=== PATIENT | male | born 1970 | race Caucasian/White ===

== ENCOUNTER 2017-01-08 16:17 | Inpatient (IN) ==
--- NOTE | 2017-01-08 16:52 | Emergency Department Note ---
Disposition Clinical Impression: Acute anxiety, Anger reaction Disposition: Admitted As Inpatient Condition: Undetermined Instructions: Anxiety (ED) Reasons to Return/Additional Instructions: 1. Please follow-up with your psychiatrist. 2. Please take your medications as prescribed. Referrals: Unassigned,Provider [Primary Care Provider] - Forms: ED Satisfaction Letter Time of Disposition: 18:28 Psych HPI - General Chief Complaint: ED Psychiatric Symptoms Stated Complaint: HI Time Seen by Provider: 01/08/17 16:37 Source: patient Mode of arrival: ambulatory Limitations: no limitations Nursing Notes Reviewed: Yes Vital Signs Reviewed: Yes - History of Present Illness HPI Narrative: 46-year-old male with history of CAD with 2 stents roughly 2-3 years ago, arrives [facility] emergency department complaining of homicidal ideations and racing thoughts. The patient states that he has been taking his medications as prescribed but over the past 2 weeks he has gotten progressively more anxious. The patient states his main anxiety causes him to become angry and he is almost gotten into numerous fights. The patient states that he is scared if he got into fights he would have a heart attack and . The patient also states that his next appointment is in [address] Sharma in [facility] psychiatric services. The patient states he is unsure if he would make it to that point because he thinks he may be hurting somebody by that point. The patient denies any hallucinations, suicidal ideations. The patient is smiling and laughing and cracking jokes whenever he walks by. The patient has been taking his medications as prescribed. Patient denies any chest pain or difficulty breathing above his baseline at this time. The patient did recently have a cardiac catheter roughly 1 month ago which revealed no acute findings. Patient denies any other complaints. Pt complaint: anxiety If medical clearance, reason: psychiatric condition Onset (ago): unknown Improves with: none Worsens with: none Alleged intoxication: No Associated Psychiatric Symptoms: homicidal ideation, racing thoughts Associated symptoms: Reports: denies other symptoms Traumatic symptoms: denies traumatic injury Self harm or harm to others: admits thoughts of harming others - Related Data Home Medications Medication Instructions Recorded Confirmed Albuterol Sulfate [Proair 90 mcg IH Q4H PRN 10/25/16 01/08/17 Respiclick] Atorvastatin [Lipitor] 40 mg PO HS 10/25/16 01/08/17 Citalopram [CeleXA] 20 mg PO DAILY 10/25/16 01/08/17 Metoprolol XL (24 HR) Succ [Toprol 50 mg PO DAILY 10/25/16 01/08/17 Xl] Previous Rx's Medication Instructions Recorded Aspirin 81 mg PO DAILY #30 tab.chew 07/04/16 Clopidogrel [Plavix] 75 mg PO DAILY #30 tablet 07/04/16 Allergies Allergy/AdvReac Type Severity Reaction Status Date / Time No Known Allergies Allergy Verified 03/16/15 16:41 All systems ED: reviewed and negative except as stated. Constitutional: Denies: fever, chills, weakness, weight change Eyes: Denies: eye pain, eye discharge, vision change ENT ED: Denies: ear pain, throat pain, dental pain, hearing loss, epistaxis, congestion, dysphagia Cardiovascular: Denies: chest pain, palpitations, dyspnea on exertion, edema, syncope Respiratory: Denies: cough, dyspnea, wheezes, hemoptysis, stridor Gastrointestinal: Denies: abdominal pain, nausea, vomiting, diarrhea, constipation, hematemesis, melena, hematochezia Musculoskeletal: Denies: back pain, neck pain, arthralgia, myalgia Neurological: Denies: headache, weakness, numbness, paresthesias, confusion, abnormal gait, vertigo Psychiatric: Reports: anxiety, homicidal thoughts. Denies: depression, suicidal thoughts, auditory hallucinations, visual hallucinations Past Medical History - Past Medical History Attestation: Yes The following information was validated with the patient. Source: patient Medical history: Reports: coronary artery disease, hyperlipidemia, hypertension , myocardial infarction Surgical history: Reports: angioplasty/stent, other Psychiatric history: Reports: anxiety, depression - Social History Smoking Status: Current every day smoker Smokeless Tobacco Status: No Alcohol use: Reports: none Drug use: Reports: marijuana Physical Exam Physical Exam: General: Patient alert, no acute distress, not lethargic HEENT: Head normal inspection, atraumatic, PERRLA, oropharynx grossly intact and normal, trachea midline, no JVD Chest: Nontraumatic, nontender, normal chest rise CV: RRR with no murmurs, rubs, gallops Respiratory: Lungs clear to auscultation bilaterally, no rales, rhonchi, wheezes. Abdomen: Normal inspection, Normal bowel sounds 4 quadrants, nontender to palpation : Patient deferred Extremities: Normal inspection, full range of motion, appropriate pulses, capillary refill under 2 seconds Neurological: Patient alert and oriented 3, cranial nerves II through XII grossly intact, GCS 15 Skin: Warm, intact, no rashes noted - General Limitations: no limitations General appearance: alert Course Vital Signs Temperature 98.4 F 01/08/17 16:22 Pulse Rate 79 01/08/17 16:22 Respiratory Rate 18 01/08/17 16:22 Blood Pressure 131/89 01/08/17 16:22 O2 Sat by Pulse Oximetry 99 01/08/17 16:22 Temperature 98.4 F 01/08/17 16:22 Pulse Rate 79 01/08/17 16:22 Respiratory Rate 18 01/08/17 16:22 Blood Pressure 131/89 01/08/17 16:22 O2 Sat by Pulse Oximetry 99 01/08/17 16:22 Oxygen Delivery Oxygen Delivery Room Air Psych - MDM Narrative Medical decision making narrative: Cleared for 1A eval Patient taken to inpatient psychiatric services at . - Lab Data Result diagrams: 01/08/17 17:14 01/08/17 17:14 Lab Results 01/08/17 01/08/17 01/08/17 Range/Units 12:40 12:40 17:14 WBC 9.1 (4.3-11.1) K/mcL RBC 4.47 (4.19-5.50) M/mcL Hgb 13.4 (12.9-16.9) g/dL Hct 40.5 (37.5-50.1) % MCV 90.6 (83.0-100.0) fL MCH 30.0 (28.0-33.3) pg MCHC 33.1 (31.6-35.5) g/dL RDW 12.4 (11.5-14.5) % Plt Count 249 (140-400) K/mcL MPV 10.8 (9.4-12.4) fL Immature Gran % 0.2 (0-4) % Seg Neutrophils % 67.8 % Lymphocytes % 22.8 % Monocytes % 5.8 % Eosinophils % 2.4 % Basophils % 1.0 % Neutrophils # 6.1 (1.6-8.9) K/mcL Lymphocytes # 2.1 (0.6-4.6) K/mcL Monocytes # 0.5 (0.0-1.3) K/mcL Eosinophils # 0.2 (0.0-0.6) K/mcL Basophils # 0.1 (0.0-0.2) K/mcL Immature Plt Fraction 6.3 H (1.1-6.1) % Sodium (136-145) mEq/L Potassium (3.5-4.5) mEq/L Chloride (98-109) mEq/L Carbon Dioxide (19-29) mEq/L BUN (8-26) mg/dL Creatinine (0.72-1.25) mg/dL Est GFR ( Amer) (> 60) Est GFR (Non-Af Amer) (> 60) BUN/Creatinine Ratio (6-26) Glucose (70-99) mg/dL Calculated Osmolality (280-300) Calcium (8.6-10.8) mg/dL Total Bilirubin (0.2-1.2) mg/dL Direct Bilirubin (0.0-0.5) mg/dL Indirect Bilirubin (0.0-1.2) mg/dL AST (5-34) Units/L ALT (0-55) Units/L Alkaline Phosphatase (38-126) Units/L Serum Total Protein (6.0-8.3) g/dL Albumin (3.5-5.0) g/dL Globulin (2.4-3.5) g/dL Albumin/Globulin Ratio (1.1-2.2) TSH (0.350-4.840) mcIU/mL Urine Color Yellow (Yellow) Urine Clarity Clear (Clear) Urine pH 7.0 (5.0-8.0) pH Units Ur Specific [place] 1.018 (1.010-1.025) Urine Protein Negative (Neg-Trace) mg/dL Urine Glucose (UA) Normal (Normal) mg/dL Urine Ketones Negative (Negative) mg/dL Urine Blood Negative (Negative) Urine Nitrite Negative (Negative) Urine Bilirubin Negative (Negative) Urine Urobilinogen Normal (Normal) mg/dL Ur Leukocyte Esterase Negative (Negative) Salicylates (15-30) mg/dL Urine Opiates Screen Negative (Pvdxwo=549) ng/mL Acetaminophen (10-30) mcg/mL Ur Barbiturates Screen Negative (Dqgyax=372) ng/mL Ur Phencyclidine Scrn Negative (Cutoff=25) ng/mL Ur Amphetamines Screen Negative (Ghdjlp=6664) ng/mL U Benzodiazepines Scrn Negative (Lynsbd=342) ng/mL Urine Cocaine Screen Negative (Cutoff= 300) ng/mL U Marijuana (THC) Screen Positive H (Cutoff = 50) ng/mL Ethyl Alcohol (0-10) mg/dL 01/08/17 Range/Units 17:14 WBC (4.3-11.1) K/mcL RBC (4.19-5.50) M/mcL Hgb (12.9-16.9) g/dL Hct (37.5-50.1) % MCV (83.0-100.0) fL MCH (28.0-33.3) pg MCHC (31.6-35.5) g/dL RDW (11.5-14.5) % Plt Count (140-400) K/mcL MPV (9.4-12.4) fL Immature Gran % (0-4) % Seg Neutrophils % % Lymphocytes % % Monocytes % % Eosinophils % % Basophils % % Neutrophils # (1.6-8.9) K/mcL Lymphocytes # (0.6-4.6) K/mcL Monocytes # (0.0-1.3) K/mcL Eosinophils # (0.0-0.6) K/mcL Basophils # (0.0-0.2) K/mcL Immature Plt Fraction (1.1-6.1) % Sodium 140 (136-145) mEq/L Potassium 4.0 (3.5-4.5) mEq/L Chloride 108 (98-109) mEq/L Carbon Dioxide 25 (19-29) mEq/L BUN 11 (8-26) mg/dL Creatinine 0.82 (0.72-1.25) mg/dL Est GFR ( Amer) > 60 (> 60) Est GFR (Non-Af Amer) > 60 (> 60) BUN/Creatinine Ratio 13 (6-26) Glucose 87 (70-99) mg/dL Calculated Osmolality 289 (280-300) Calcium 9.2 (8.6-10.8) mg/dL Total Bilirubin 0.4 (0.2-1.2) mg/dL Direct Bilirubin 0.1 (0.0-0.5) mg/dL Indirect Bilirubin 0.3 (0.0-1.2) mg/dL AST 8 (5-34) Units/L ALT 9 (0-55) Units/L Alkaline Phosphatase 87 (38-126) Units/L Serum Total Protein 7.0 (6.0-8.3) g/dL Albumin 3.6 (3.5-5.0) g/dL Globulin 3.4 (2.4-3.5) g/dL Albumin/Globulin Ratio 1.1 (1.1-2.2) TSH 0.299 L (0.350-4.840) mcIU/mL Urine Color (Yellow) Urine Clarity (Clear) Urine pH (5.0-8.0) pH Units Ur Specific [place] (1.010-1.025) Urine Protein (Neg-Trace) mg/dL Urine Glucose (UA) (Normal) mg/dL Urine Ketones (Negative) mg/dL Urine Blood (Negative) Urine Nitrite (Negative) Urine Bilirubin (Negative) Urine Urobilinogen (Normal) mg/dL Ur Leukocyte Esterase (Negative) Salicylates < 5.0 L (15-30) mg/dL Urine Opiates Screen (Uhazsu=242) ng/mL Acetaminophen < 1.0 L (10-30) mcg/mL Ur Barbiturates Screen (Gmcozd=014) ng/mL Ur Phencyclidine Scrn (Cutoff=25) ng/mL Ur Amphetamines Screen (Ooitnt=9944) ng/mL U Benzodiazepines Scrn (Mbbjxs=451) ng/mL Urine Cocaine Screen (Cutoff= 300) ng/mL U Marijuana (THC) Screen (Cutoff = 50) ng/mL Ethyl Alcohol < 10 (0-10) mg/dL - EKG Data EKG attestation: Yes I reviewed and interpreted this EKG. EKG results narrative: Heart rate 61 bpm. [place] interval 152 ms. QTC 392 ms. Normal axis. Normal sinus rhythm. No ST elevation or ST depression noted. No acute changes noted. Psychiatric Medical Clearance - Medical Clearance Checklist Medical History: No Social History Section defined Current Vitals: Last Vital Signs Temp 98.4 F 01/08/17 16:22 Pulse 79 01/08/17 16:22 Resp 18 01/08/17 16:22 BP 131/89 01/08/17 16:22 Pulse Ox 99 01/08/17 16:22 Psychiatric Lab Panel: Drug Levels and Toxicity 01/08/17 01/08/17 12:40 17:14 Urine Opiates Screen Negative Acetaminophen < 1.0 L Ur Barbiturates Screen Negative Ur Phencyclidine Scrn Negative Ur Amphetamines Screen Negative U Benzodiazepines Scrn Negative Urine Cocaine Screen Negative U Marijuana (THC) Screen Positive H Ethyl Alcohol < 10 Abnormal Labs: Abnormal lab results Immature Plt Fraction 6.3 % (1.1-6.1) H 01/08/17 17:14 TSH 0.299 mcIU/mL (0.350-4.840) L 01/08/17 17:14 Salicylates < 5.0 mg/dL (15-30) L 01/08/17 17:14 Acetaminophen < 1.0 mcg/mL (10-30) L 01/08/17 17:14 U Marijuana (THC) Screen Positive ng/mL (Cutoff = 50) H 01/08/17 12:40 Statement of Medical Clearance: I have evaluated the patient, reviewed diagnostic information, and certify that the patient's medical condition is sufficiently stable that transfer to the psychiatric unit does not pose a significant risk of deterioration.
--- NOTE | 2017-01-08 17:06 | Emergency Department Note ---
Disposition Clinical Impression: Acute anxiety, Anger reaction Disposition: Admitted As Inpatient Condition: Undetermined General Adult HPI - General Chief complaint: ED Psychiatric Symptoms Stated complaint: HI Time Seen by Provider: 01/08/17 16:37 Source: patient Mode of arrival: ambulatory Limitations: no limitations - History of Present Illness Pain Scale: 5 - Related Data Home Medications Medication Instructions Recorded Confirmed Albuterol Sulfate [Proair 2 puff IH Q4H PRN 10/25/16 01/08/17 Respiclick] Atorvastatin [Lipitor] 40 mg PO HS 10/25/16 01/08/17 Citalopram [CeleXA] 30 mg PO DAILY 10/25/16 01/08/17 Metoprolol XL (24 HR) Succ [Toprol 50 mg PO DAILY 10/25/16 01/08/17 Xl] Previous Rx's Medication Instructions Recorded Aspirin 81 mg PO DAILY #30 tab.chew 07/04/16 Clopidogrel [Plavix] 75 mg PO DAILY #30 tablet 07/04/16 Allergies Allergy/AdvReac Type Severity Reaction Status Date / Time trazodone AdvReac See Verified 01/08/17 20:34 Comments Constitutional: Denies: fever, chills, weakness, weight change Eyes: Denies: eye pain, eye discharge, vision change ENT ED: Denies: ear pain, throat pain, dental pain, hearing loss, epistaxis, congestion, dysphagia Cardiovascular: Denies: chest pain, palpitations, dyspnea on exertion, edema, syncope Respiratory: Denies: cough, dyspnea, wheezes, hemoptysis, stridor Gastrointestinal: Denies: abdominal pain, nausea, vomiting, diarrhea, constipation, hematemesis, melena, hematochezia Musculoskeletal: Denies: back pain, neck pain, arthralgia, myalgia Neurological: Denies: headache, weakness, numbness, paresthesias, confusion, abnormal gait, vertigo Psychiatric: Reports: anxiety, homicidal thoughts. Denies: depression, suicidal thoughts, auditory hallucinations, visual hallucinations Past Medical History - Past Medical History Medical history: Reports: coronary artery disease, hyperlipidemia, hypertension , myocardial infarction Surgical history: Reports: angioplasty/stent, other Psychiatric history: Reports: anxiety, depression - Social History Smoking Status: Current every day smoker Smokeless Tobacco Status: No Alcohol use: Reports: none Drug use: Reports: marijuana Physical Exam - General Limitations: no limitations General appearance: alert Course - Reevaluation(s) Reevaluation #1: I saw the patient with resident, Dr. Stafford. Patient presents with anxiety and stress and reported homicidal ideations. Patient is calm and cooperative at this time. We will do a medical screening evaluation of the patient. If that workup was negative patient will have a psychiatry consult. Time: 17:05 Vital Signs Temperature 98.4 F 01/08/17 16:22 Pulse Rate 79 01/08/17 16:22 Respiratory Rate 18 01/08/17 16:22 Blood Pressure 131/89 01/08/17 16:22 O2 Sat by Pulse Oximetry 99 01/08/17 16:22 Temperature 98.4 F 01/08/17 16:22 Pulse Rate 79 01/08/17 16:22 Respiratory Rate 0 01/08/17 19:39 Blood Pressure 0/0 01/08/17 19:39 O2 Sat by Pulse Oximetry 99 01/08/17 16:22 Oxygen Delivery Oxygen Delivery Room Air Medical Decision Making - Lab Data Result diagrams: 01/08/17 17:14 01/08/17 17:14 Lab Results 01/08/17 01/08/17 01/08/17 Range/Units 12:40 12:40 17:14 WBC 9.1 (4.3-11.1) K/mcL RBC 4.47 (4.19-5.50) M/mcL Hgb 13.4 (12.9-16.9) g/dL Hct 40.5 (37.5-50.1) % MCV 90.6 (83.0-100.0) fL MCH 30.0 (28.0-33.3) pg MCHC 33.1 (31.6-35.5) g/dL RDW 12.4 (11.5-14.5) % Plt Count 249 (140-400) K/mcL MPV 10.8 (9.4-12.4) fL Immature Gran % 0.2 (0-4) % Seg Neutrophils % 67.8 % Lymphocytes % 22.8 % Monocytes % 5.8 % Eosinophils % 2.4 % Basophils % 1.0 % Neutrophils # 6.1 (1.6-8.9) K/mcL Lymphocytes # 2.1 (0.6-4.6) K/mcL Monocytes # 0.5 (0.0-1.3) K/mcL Eosinophils # 0.2 (0.0-0.6) K/mcL Basophils # 0.1 (0.0-0.2) K/mcL Immature Plt Fraction 6.3 H (1.1-6.1) % Sodium (136-145) mEq/L Potassium (3.5-4.5) mEq/L Chloride (98-109) mEq/L Carbon Dioxide (19-29) mEq/L BUN (8-26) mg/dL Creatinine (0.72-1.25) mg/dL Est GFR ( Amer) (> 60) Est GFR (Non-Af Amer) (> 60) BUN/Creatinine Ratio (6-26) Glucose (70-99) mg/dL Calculated Osmolality (280-300) Calcium (8.6-10.8) mg/dL Total Bilirubin (0.2-1.2) mg/dL Direct Bilirubin (0.0-0.5) mg/dL Indirect Bilirubin (0.0-1.2) mg/dL AST (5-34) Units/L ALT (0-55) Units/L Alkaline Phosphatase (38-126) Units/L Serum Total Protein (6.0-8.3) g/dL Albumin (3.5-5.0) g/dL Globulin (2.4-3.5) g/dL Albumin/Globulin Ratio (1.1-2.2) TSH (0.350-4.840) mcIU/mL Urine Color Yellow (Yellow) Urine Clarity Clear (Clear) Urine pH 7.0 (5.0-8.0) pH Units Ur Specific [place] 1.018 (1.010-1.025) Urine Protein Negative (Neg-Trace) mg/dL Urine Glucose (UA) Normal (Normal) mg/dL Urine Ketones Negative (Negative) mg/dL Urine Blood Negative (Negative) Urine Nitrite Negative (Negative) Urine Bilirubin Negative (Negative) Urine Urobilinogen Normal (Normal) mg/dL Ur Leukocyte Esterase Negative (Negative) Salicylates (15-30) mg/dL Urine Opiates Screen Negative (Lwpkip=760) ng/mL Acetaminophen (10-30) mcg/mL Ur Barbiturates Screen Negative (Cufcio=197) ng/mL Ur Phencyclidine Scrn Negative (Cutoff=25) ng/mL Ur Amphetamines Screen Negative (Qyzcnd=8773) ng/mL U Benzodiazepines Scrn Negative (Dnvdzg=717) ng/mL Urine Cocaine Screen Negative (Cutoff= 300) ng/mL U Marijuana (THC) Screen Positive H (Cutoff = 50) ng/mL Ethyl Alcohol (0-10) mg/dL 01/08/17 Range/Units 17:14 WBC (4.3-11.1) K/mcL RBC (4.19-5.50) M/mcL Hgb (12.9-16.9) g/dL Hct (37.5-50.1) % MCV (83.0-100.0) fL MCH (28.0-33.3) pg MCHC (31.6-35.5) g/dL RDW (11.5-14.5) % Plt Count (140-400) K/mcL MPV (9.4-12.4) fL Immature Gran % (0-4) % Seg Neutrophils % % Lymphocytes % % Monocytes % % Eosinophils % % Basophils % % Neutrophils # (1.6-8.9) K/mcL Lymphocytes # (0.6-4.6) K/mcL Monocytes # (0.0-1.3) K/mcL Eosinophils # (0.0-0.6) K/mcL Basophils # (0.0-0.2) K/mcL Immature Plt Fraction (1.1-6.1) % Sodium 140 (136-145) mEq/L Potassium 4.0 (3.5-4.5) mEq/L Chloride 108 (98-109) mEq/L Carbon Dioxide 25 (19-29) mEq/L BUN 11 (8-26) mg/dL Creatinine 0.82 (0.72-1.25) mg/dL Est GFR ( Amer) > 60 (> 60) Est GFR (Non-Af Amer) > 60 (> 60) BUN/Creatinine Ratio 13 (6-26) Glucose 87 (70-99) mg/dL Calculated Osmolality 289 (280-300) Calcium 9.2 (8.6-10.8) mg/dL Total Bilirubin 0.4 (0.2-1.2) mg/dL Direct Bilirubin 0.1 (0.0-0.5) mg/dL Indirect Bilirubin 0.3 (0.0-1.2) mg/dL AST 8 (5-34) Units/L ALT 9 (0-55) Units/L Alkaline Phosphatase 87 (38-126) Units/L Serum Total Protein 7.0 (6.0-8.3) g/dL Albumin 3.6 (3.5-5.0) g/dL Globulin 3.4 (2.4-3.5) g/dL Albumin/Globulin Ratio 1.1 (1.1-2.2) TSH 0.299 L (0.350-4.840) mcIU/mL Urine Color (Yellow) Urine Clarity (Clear) Urine pH (5.0-8.0) pH Units Ur Specific [place] (1.010-1.025) Urine Protein (Neg-Trace) mg/dL Urine Glucose (UA) (Normal) mg/dL Urine Ketones (Negative) mg/dL Urine Blood (Negative) Urine Nitrite (Negative) Urine Bilirubin (Negative) Urine Urobilinogen (Normal) mg/dL Ur Leukocyte Esterase (Negative) Salicylates < 5.0 L (15-30) mg/dL Urine Opiates Screen (Frajvj=146) ng/mL Acetaminophen < 1.0 L (10-30) mcg/mL Ur Barbiturates Screen (Lksxdd=069) ng/mL Ur Phencyclidine Scrn (Cutoff=25) ng/mL Ur Amphetamines Screen (Kcrvnn=1956) ng/mL U Benzodiazepines Scrn (Ghrtyd=790) ng/mL Urine Cocaine Screen (Cutoff= 300) ng/mL U Marijuana (THC) Screen (Cutoff = 50) ng/mL Ethyl Alcohol < 10 (0-10) mg/dL Attestation Statement - Attestation Attestation: I, Dr. Leon, examined this patient [id number] and my medical decision- making was reviewed with Dr. Perez, Resident Physician. I agree with the documented findings, disposition and treatment plan as described except to the extent set forth below. Please see my progress notes for details.
[2017-01-08 17:34] LABS: Alanine Aminotransferase 9 Units/L (0-55); Albumin 3.6 g/dL (3.5-5.0); Albumin/Globulin Ratio 1.1 (1.1-2.2); Alkaline Phosphatase 87 Units/L (38-126); Aspartate Amino Transferase 8 Units/L (5-34); BUN/Creatinine Ratio 13 (6-26); Bilirubin,Direct 0.1 mg/dL (0.0-0.5); Bilirubin,Indirect 0.3 mg/dL (0.0-1.2); Bilirubin,Total 0.4 mg/dL (0.2-1.2); Blood Urea Nitrogen 11 mg/dL (8-26); Calcium 9.2 mg/dL (8.6-10.8); Carbon Dioxide 25 mEq/L (19-29); Chloride 108 mEq/L (98-109); Globulin 3.4 g/dL (2.4-3.5); Glucose 87 mg/dL (70-99); Osmolality,Calculated 289 (280-300); Sodium 140 mEq/L (136-145); eGFR For African Americans > 60 (> 60); eGFR For Non-African Americans > 60 (> 60)
[2017-01-08 17:36] LABS: Acetaminophen < 1.0 mcg/mL (10-30); Ethanol < 10 mg/dL (0-10); Salicylate < 5.0 mg/dL (15-30)
[2017-01-08 17:38] LABS: Basophils # 0.1 K/mcL (0.0-0.2); Eosinophils # 0.2 K/mcL (0.0-0.6); Eosinophils % 2.4 %; Hematocrit 40.5 % (37.5-50.1); Hemoglobin 13.4 g/dL (12.9-16.9); Immature Granulocytes % 0.2 % (0-4); Immature Platelets 6.3 % (1.1-6.1); Lymphocytes # 2.1 K/mcL (0.6-4.6); Lymphocytes % 22.8 %; Mean Corpuscular HGB Conc 33.1 g/dL (31.6-35.5); Mean Corpuscular Volume 90.6 fL (83.0-100.0); Mean Platelet Volume 10.8 fL (9.4-12.4); Monocytes # 0.5 K/mcL (0.0-1.3); Monocytes % 5.8 %; Neutrophils # 6.1 K/mcL (1.6-8.9); Platelet Count 249 K/mcL (140-400); Red Blood Count 4.47 M/mcL (4.19-5.50); Red Cell Distribution Width 12.4 % (11.5-14.5); Segmented Neutrophils % 67.8 %
[2017-01-08 17:42] LABS: Bilirubin,Urine Negative (Negative); Blood,Urine Negative (Negative); Clarity,Urine Clear (Clear); Color,Urine Yellow (Yellow); Glucose,Urine (UA) Normal (Normal); Ketones,Urine Negative (Negative); Leukocyte Esterase,Urine Negative (Negative); Nitrite,Urine Negative (Negative); Protein,Urine Negative (Neg-Trace); Specific Gravity,Urine 1.018 (1.010-1.025); Urobilinogen,Urine Normal (Normal)
[2017-01-08 17:46] LABS: Amphetamine Screen,Urine Negative ng/mL (Cutoff=1000); Barbiturate Screen,Urine Negative ng/mL (Cutoff=200); Benzodiazepines Screen,Urine Negative ng/mL (Cutoff=200); Cannabinoid Screen,Urine Positive ng/mL (Cutoff = 50); Cocaine Screen,Urine Negative ng/mL (Cutoff= 300); Opiate Screen,Urine Negative ng/mL (Cutoff=300); Phencyclidine Screen,Urine Negative ng/mL (Cutoff=25)
[2017-01-08 17:54] LABS: Thyroid Stimulating Hormone 0.299 mcIU/mL (0.350-4.840)
[2017-01-08] MEDS ORDERED: traZODone 50 MG TABLET PO PRN (20:24)
[2017-01-08] MEDS ORDERED: *HR* LORazepam 1 MG TABLET PO PRN (20:24)
[2017-01-08] MEDS ORDERED: MOM Conc 10 ML UD.LIQ PO PRN (20:24)
[2017-01-08] MEDS ORDERED: *HR* LORazepam 2 MG/ML VIAL IM PRN (20:24)
[2017-01-08] MEDS ORDERED: Acetaminophen 325 MG TABLET PO PRN (20:24)
[2017-01-08] MEDS ORDERED: Mag Hydrox/Al Hydrox/Simeth 30 ML UDC PO PRN (20:24)
[2017-01-08] MEDS ORDERED: Haloperidol Lactate 5 MG/ML VIAL IM PRN (20:24)
[2017-01-08] MEDS: hydrOXYzine pamoate 25 MG CAPSULE PO PRN (21:58)
[2017-01-09] MEDS: Metoprolol XL (24 HR) Succ 50 MG TAB.ER.24H PO SCH (08:58)
[2017-01-09] MEDS: Aspirin 81 MG TAB.CHEW PO SCH (08:58)
--- NOTE | 2017-01-09 12:01 | Psychiatry History & Physical ---
Date of Encounter: 01/09/17 Time of Encounter: 11:00 History of Present Illness Patient Stated Chief Complaint: Homicidal ideation, agitation Medicare Admission Attestation: For traditional Medicare patients the provided hospital inpatient services are reasonable and necessary and in the case of services not specified as inpatient -only under 42 CFR 419.22 (n), that they are appropriately provided as inpatient services in accordance 42 CFR 412.3. For [facility] the patient may reasonably be expected to be discharged or transferred to a hospital within 96 hours after admission to the Critical [facility]. Admitted From: Emergency Dept History of Present Illness: Mr. Brown is a 46 year old male admitted from the emergency department for evaluation of homicidal ideation and agitation. From the records patient was agitated in the emergency room was the nurse was doing the evaluation for admission to psych. He was not yelling and threatening to kill anyone. Patient has been treated for depression and an anxiety in the past on and off. Recently he was seen by Dr. Sharma on June 2016 for consultation in the hospital and then was seen and her office recently for treatment of depression. Patient is currently on citalopram 30 mg and he was trying to see Dr. Sharma to add another medication for anxiety and his appointment is unit in March and at this point he was advised to come to the emergency departments for admission. Patient was initially irritable and agitated and uncooperative but he was redirected and educated about the evaluation then he became cooperative. He reports having irritability and anxiety that gets him into arguments and fights. He reports when he was medicated with citalopram and Klonopin he was able to manage his behavior and stay in control. Past Med Surg Social Fam HX - Past Medical History Medical history: coronary artery disease, hyperlipidemia, hypertension, myocardial infarction - Past Psychiatric History Psychiatric history: Reports: anxiety, depression. Denies: prior suicide attempt, previous psychiatric hospitalization - Past Surgical History Surgical History: angioplasty/stent, other - Social History Smoking Status: Current every day smoker Smokeless Tobacco Status: No Alcohol use: none Drug use: marijuana Medications & Allergies Aspirin 81 mg PO DAILY #30 tab.chew 07/04/16 [Rx] Clopidogrel [Plavix] 75 mg PO DAILY #30 tablet 07/04/16 [Rx] Albuterol Sulfate [Proair Respiclick] 2 puff IH Q4H PRN 10/25/16 [History] Atorvastatin [Lipitor] 40 mg PO HS 10/25/16 [History] Citalopram [CeleXA] 30 mg PO DAILY 10/25/16 [History] Metoprolol XL (24 HR) Succ [Toprol Xl] 50 mg PO DAILY 10/25/16 [History] Allergies trazodone Adverse Reaction (Verified 01/08/17 20:34) See Comments Review of Systems Psychiatric: Reports: depression, anxiety, homicidal ideation, irritability, mood swings Mental Status Exam Patient orientation: Yes Person, Yes Time, Yes Place Level of alertness: Alert Patient appearance: Appropriate, Well Groomed Behavior: calm, cooperative, agitated, hostile, uncooperative, guarded Psychomotor activity: Increased Eye contact: Avoids Eye Contact Mood description: Angry, Labile, Irritable Affect description: congruent with mood, labile, dysphoric, anxious Speech pattern: Normal rate, Normal rhythm, Normal tone, Pressured Speech volume: Loud Thought process: Linear, Goal Oriented, Tangential Thought content: No Suicidal ideation, Yes Homicidal ideation, No Overt delusions Perceptual disturbances: No Auditory hallucinations, No Visual hallucinations Attention span: Capable of Focused Attention Memory description: Grossly Intact Patient reliability: Reliable Historian Intelligence estimate: Average Judgment: Limited Insight: Partial Results - Vital Signs Vital signs: Temp Pulse Resp BP Pulse Ox 97.4 F L 85 18 117/90 99 01/09/17 09:00 01/09/17 09:00 01/09/17 09:00 01/09/17 09:00 01/08/17 16:22 - Labs Labs: Laboratory Last Values WBC 9.1 K/mcL (4.3-11.1) 01/08/17 17:14 RBC 4.47 M/mcL (4.19-5.50) 01/08/17 17:14 Hgb 13.4 g/dL (12.9-16.9) 01/08/17 17:14 Hct 40.5 % (37.5-50.1) 01/08/17 17:14 MCV 90.6 fL (83.0-100.0) 01/08/17 17:14 MCH 30.0 pg (28.0-33.3) 01/08/17 17:14 MCHC 33.1 g/dL (31.6-35.5) 01/08/17 17:14 RDW 12.4 % (11.5-14.5) 01/08/17 17:14 Plt Count 249 K/mcL (140-400) 01/08/17 17:14 MPV 10.8 fL (9.4-12.4) 01/08/17 17:14 Immature Gran % 0.2 % (0-4) 01/08/17 17:14 Seg Neutrophils % 67.8 % 01/08/17 17:14 Lymphocytes % 22.8 % 01/08/17 17:14 Monocytes % 5.8 % 01/08/17 17:14 Eosinophils % 2.4 % 01/08/17 17:14 Basophils % 1.0 % 01/08/17 17:14 Neutrophils # 6.1 K/mcL (1.6-8.9) 01/08/17 17:14 Lymphocytes # 2.1 K/mcL (0.6-4.6) 01/08/17 17:14 Monocytes # 0.5 K/mcL (0.0-1.3) 01/08/17 17:14 Eosinophils # 0.2 K/mcL (0.0-0.6) 01/08/17 17:14 Basophils # 0.1 K/mcL (0.0-0.2) 01/08/17 17:14 Immature Plt Fraction 6.3 % (1.1-6.1) H 01/08/17 17:14 Sodium 140 mEq/L (136-145) 01/08/17 17:14 Potassium 4.0 mEq/L (3.5-4.5) 01/08/17 17:14 Chloride 108 mEq/L (98-109) 01/08/17 17:14 Carbon Dioxide 25 mEq/L (19-29) 01/08/17 17:14 BUN 11 mg/dL (8-26) 01/08/17 17:14 Creatinine 0.82 mg/dL (0.72-1.25) 01/08/17 17:14 Est GFR ( Amer) > 60 (> 60) 01/08/17 17:14 Est GFR (Non-Af Amer) > 60 (> 60) 01/08/17 17:14 BUN/Creatinine Ratio 13 (6-26) 01/08/17 17:14 Glucose 87 mg/dL (70-99) 01/08/17 17:14 Calculated Osmolality 289 (280-300) 01/08/17 17:14 Calcium 9.2 mg/dL (8.6-10.8) 01/08/17 17:14 Total Bilirubin 0.4 mg/dL (0.2-1.2) 01/08/17 17:14 Direct Bilirubin 0.1 mg/dL (0.0-0.5) 01/08/17 17:14 Indirect Bilirubin 0.3 mg/dL (0.0-1.2) 01/08/17 17:14 AST 8 Units/L (5-34) 01/08/17 17:14 ALT 9 Units/L (0-55) 01/08/17 17:14 Alkaline Phosphatase 87 Units/L (38-126) 01/08/17 17:14 Serum Total Protein 7.0 g/dL (6.0-8.3) 01/08/17 17:14 Albumin 3.6 g/dL (3.5-5.0) 01/08/17 17:14 Globulin 3.4 g/dL (2.4-3.5) 01/08/17 17:14 Albumin/Globulin Ratio 1.1 (1.1-2.2) 01/08/17 17:14 TSH 0.299 mcIU/mL (0.350-4.840) L 01/08/17 17:14 Urine Color Yellow (Yellow) 01/08/17 12:40 Urine Clarity Clear (Clear) 01/08/17 12:40 Urine pH 7.0 pH Units (5.0-8.0) 01/08/17 12:40 Ur Specific [place] 1.018 (1.010-1.025) 01/08/17 12:40 Urine Protein Negative mg/dL (Neg-Trace) 01/08/17 12:40 Urine Glucose (UA) Normal mg/dL (Normal) 01/08/17 12:40 Urine Ketones Negative mg/dL (Negative) 01/08/17 12:40 Urine Blood Negative (Negative) 01/08/17 12:40 Urine Nitrite Negative (Negative) 01/08/17 12:40 Urine Bilirubin Negative (Negative) 01/08/17 12:40 Urine Urobilinogen Normal mg/dL (Normal) 01/08/17 12:40 Ur Leukocyte Esterase Negative (Negative) 01/08/17 12:40 Salicylates < 5.0 mg/dL (15-30) L 01/08/17 17:14 Urine Opiates Screen Negative ng/mL (Zgyasw=982) 01/08/17 12:40 Acetaminophen < 1.0 mcg/mL (10-30) L 01/08/17 17:14 Ur Barbiturates Screen Negative ng/mL (Yycsrt=528) 01/08/17 12:40 Ur Phencyclidine Scrn Negative ng/mL (Cutoff=25) 01/08/17 12:40 Ur Amphetamines Screen Negative ng/mL (Pzrkoq=2296) 01/08/17 12:40 U Benzodiazepines Scrn Negative ng/mL (Mesxmq=304) 01/08/17 12:40 Urine Cocaine Screen Negative ng/mL (Cutoff= 300) 01/08/17 12:40 U Marijuana (THC) Screen Positive ng/mL (Cutoff = 50) H 01/08/17 12:40 Ethyl Alcohol < 10 mg/dL (0-10) 01/08/17 17:14 Assessment and Plan (1) Depression Current visit: No Status: Acute Additional Plan: We will add gabapentin 300 mg 3 times a day as mood stabilizer and an exotic stabilizing medication benefits and side effects were discussed with the patient and his agreeable we will monitor Qualifiers: Depression Type: major depressive disorder Major depression recurrence: recurrent Active/Remission status: currently active Major depression episode severity: severe Psychotic features: without psychotic features Qualified Code(s): F33.2 - Major depressive disorder, recurrent severe without psychotic features
[2017-01-09] MEDS: Gabapentin 300 MG CAPSULE PO SCH ×2 (15:03→21:16)
--- NOTE | 2017-01-09 15:43 | Electrocardiograph Report ---
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
[2017-01-09] MEDS: *HR* LORazepam 1 MG TABLET PO PRN ×2 (15:57→21:20)
[2017-01-09] MEDS: hydrOXYzine pamoate 25 MG CAPSULE PO PRN (21:18)
[2017-01-10] MEDS: Gabapentin 300 MG CAPSULE PO SCH ×3 (09:32→21:31)
[2017-01-10] MEDS: Aspirin 81 MG TAB.CHEW PO SCH (09:32)
[2017-01-10] MEDS: Metoprolol XL (24 HR) Succ 50 MG TAB.ER.24H PO SCH (09:32)
[2017-01-10] MEDS: *HR* LORazepam 1 MG TABLET PO PRN (09:36)
--- NOTE | 2017-01-10 13:50 | Psychiatry Progress Note ---
Date of Encounter: 01/10/17 Time of Encounter: 13:30 Subjective Interval history: Patient is here for follow-up. He reports improved sleep, less anxious, less irritable. He attends some groups. Denies any side effects from medication. He feels Klonopin when necessary works better than lorazepam when necessary . He denied any homicidal ideation is showing improved insight and judgment . 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 Review of Systems Psychiatric: Reports: depression, anxiety, homicidal ideation, irritability, mood swings Objective: Exam Patient orientation: Yes Person, Yes Time, Yes Place Level of alertness: Alert Patient appearance: Appropriate, Well Groomed Behavior: calm, cooperative, talkative Psychomotor activity: Normal Eye contact: Maintains Eye Contact Mood description: Euthymic/stable, Expansive, Labile Affect description: congruent with mood, full range, labile Speech pattern: Normal rate, Normal rhythm, Normal tone Speech volume: Normal Thought process: Linear, Goal Oriented Thought content: No Suicidal ideation, No Homicidal ideation, No Overt delusions Perceptual disturbances: No Auditory hallucinations, No Visual hallucinations Judgment: Fair Insight: Partial Results - Vital Signs Vital Signs: Temp Pulse Resp BP Pulse Ox 97.7 F 67 18 115/74 99 01/10/17 09:00 01/10/17 09:00 01/10/17 09:00 01/10/17 09:00 01/08/17 16:22 Assessment and Plan (1) Depression Current visit: No Status: Acute Plan: Continue hospitalization, Close observation, Suicide Precautions per unit protocol, Encourage participation in unit milieu, Group Therapy, Monitor sleep, Monitor appetite Risks, benefits, side effects, alternatives discussed w/pt: Yes Patient agreeable to treatment: Yes Qualifiers: Depression Type: major depressive disorder Major depression recurrence: recurrent Active/Remission status: currently active Major depression episode severity: severe Psychotic features: without psychotic features Qualified Code(s): F33.2 - Major depressive disorder, recurrent severe without psychotic features Consult Discharge Plan - Plan Referrals: [facility] [Outside] - 01/24/17 2:00 pm (The above appointment is with Chantell Barreto for therapy. You will also see Dr. Gomez on 02/19/2017 at 9: 20am.)
[2017-01-10] MEDS: clonazePAM 0.5 MG TABLET PO PRN ×2 (15:44→21:31)
[2017-01-11] MEDS: Aspirin 81 MG TAB.CHEW PO SCH (08:55)
[2017-01-11] MEDS: Gabapentin 300 MG CAPSULE PO SCH ×2 (08:56→15:24)
[2017-01-11] MEDS: Metoprolol XL (24 HR) Succ 50 MG TAB.ER.24H PO SCH (08:56)
[2017-01-11] MEDS: clonazePAM 0.5 MG TABLET PO PRN (09:11)
[2017-01-11 09:25] VITALS: BP 110/79
--- NOTE | 2017-01-11 15:02 | Discharge Summary ---
Date of Encounter: 01/11/17 Time of Encounter: 15:00 Diagnosis - Discharge Diagnosis (1) Depression Status: Acute Qualifiers: Depression Type: major depressive disorder Major depression recurrence: recurrent Active/Remission status: currently active Major depression episode severity: severe Psychotic features: without psychotic features Qualified Code(s): F33.2 - Major depressive disorder, recurrent severe without psychotic features Medications - Discharge Medications Prescriptions: Citalopram [CeleXA] 30 mg PO DAILY #30 tablet clonazePAM [Klonopin] 0.5 mg PO BID PRN #30 tablet PRN Reason: Anxiety Gabapentin [Neurontin] 300 mg PO TID #90 capsule Quetiapine Fumarate [Seroquel] 50 mg PO HS PRN #30 tablet PRN Reason: Insomnia Aspirin 81 mg PO DAILY #30 tab.chew 07/04/16 [Rx] Clopidogrel [Plavix] 75 mg PO DAILY #30 tablet 07/04/16 [Rx] Albuterol Sulfate [Proair Respiclick] 2 puff IH Q4H PRN 10/25/16 [History] Atorvastatin [Lipitor] 40 mg PO HS 10/25/16 [History] Metoprolol XL (24 HR) Succ [Toprol Xl] 50 mg PO DAILY 10/25/16 [History] Citalopram [CeleXA] 30 mg PO DAILY #30 tablet 01/11/17 [Rx] Gabapentin [Neurontin] 300 mg PO TID #90 capsule 01/11/17 [Rx] Quetiapine Fumarate [Seroquel] 50 mg PO HS PRN #30 tablet 01/11/17 [Rx] clonazePAM [Klonopin] 0.5 mg PO BID PRN #30 tablet 01/11/17 [Rx] Allergies trazodone Adverse Reaction (Verified 01/08/17 20:34) See Comments Provider Date of admission: 01/08/17 19:45 Primary care physician: Provider Unassigned Discharging clinician: Vasyl Ojeda Assessment and Plan - Patient/Caregiver Discharge Instructions Activity: resume usual activities as tolerated Diet: regular diet - Follow up Plan Follow up with: [facility] [Outside] - 01/24/17 2:00 pm (The above appointment is with Chantell Barreto for therapy. You will also see Dr. Gomez on 02/19/2017 at 9: 20am.) [facility] [Outside] (Office staff will contact you directly to arrange your appointment to start case management services. When you go to your first appointment, please arrive 15 minutes early to complete paperwork. Please bring your insurance card and photo ID. ) Functional capacity at discharge: independent ambulation Overall status at discharge: Stable Disposition: Home, Self-Care Hospital Course Hospital course: Mr. Brown is a 46 year old male admitted for homicidal ideation. Details of the admission please see H&P On the unit patient was started on citalopram and gabapentin and Seroquel at bedtime. Patient responded well to medication reported improved sleep and less irritability or mood swings. He participated in activities was compliant with medication. He was given Klonopin when necessary for anxiety. He reported improved attention and focusing and was able to set goals for his treatment. He was educated about medication and benzodiazepine and advised to use as less as possible to avoid long-term side effects. On discharge patient was medically stable, denied any suicidal or homicidal ideation. He was future oriented and grateful for the care she received in the units. His discharge plans on follow-up were reviewed by the social security benefits interviewer. - Time Spent with Patient Total time spent providing and/or coordinating discharge services: Greater than 30 minutes Quality - Multiple Antipsychotics Patient discharged on 2 or more antipsychotic medications: No Procedures - Procedures Procedures: Medication Management, Crisis Stabilization, Supportive Therapy, Group Therapy, Psychoeducational Therapy Mental Status Exam - Mental Status Exam Patient orientation: Yes Person, Yes Time, Yes Place Level of alertness: Alert Patient appearance: Appropriate, Well Groomed Behavior: calm, cooperative Psychomotor activity: Normal Eye contact: Maintains Eye Contact Mood description: Euthymic/stable Affect description: congruent with mood, full range Speech pattern: Normal rate, Normal rhythm, Normal tone Speech Volume: Normal Thought process: Linear, Goal Oriented Thought Content: No Suicidal ideation, No Homicidal ideation, No Overt delusions Perceptual Disturbances: No Auditory hallucinations, No Visual hallucinations Judgment: Limited Insight: Partial
== END 2017-01-11 16:55 | disposition home or self-care (01) | DRG 751 ==
LOC: EMEROO 16:17 → 1ANU 19:45
PROVIDERS: ADMIT Psychiatry & Neurology Psychiatry; ATTEND Psychiatry & Neurology Psychiatry